=== PATIENT | female | born 1955 | race Caucasian/White ===

== ENCOUNTER → 2016-09-22 | Outpatient (CLI) | payer OTHER ==
--- NOTE | 2016-09-22 12:38 | MG ---
HISTORY: SCREENING Comparison: 11/20/2014 FINDINGS: Bilateral CC and MLO projections of the right and left breast were obtained. Scattered fibroglandul ar tissue is seen to be present. No significant architectural distortion, mass or clustered microca lcifications can be observed to suggest malignancy. No skin thickening or nipple retraction is appr eciated. No pathological lymphadenopathy can be identified. Stable benign calcifications seen in b oth breasts and biopsy clip on the left. IMPRESSION: NO RADIOGRAPHIC EVIDENCE OF MALIGNANCY. ACR CATEGORY I - NEGATIVE EXAM. FOLLOW-UP EXAM 1 YEAR. Diagnostic CAD was utilized and reviewed. * 0 (ZERO) - ASSESSMENT INCOMPLETE; ADDITIONAL IMAGING IS NEEDED. * 1/ (ONE) - NEGATIVE. * 2/II (TWO) - BENIGN FINDINGS. * 3/III (THREE) - PROBABLY BENIGN FINDING; SHORT INTERVAL FOLLOW-UP SUGGESTED. * 4/IV (FOUR) - SUSPICIOUS ABNORMALITY; BIOPSY SHOULD BE CONSIDERED. * 5/V - HIGHLY SUSPICIOUS OF MALIGNANCY; BIOPSY SHOULD BE PERFORMED. A NEGATIVE X-RAY REPORT SHOULD NOT DELAY BIOPSY IF A DOMINANT OR CLINICALLY SUSPICIOUS MASS IS PRESENT; 4 TO 8 PERCENT OF CANCERS ARE NOT IDENTIFIED BY X-RAY. A NEG ATIVE REPORT MAY REINFORCE THE CLINICAL IMPRESSION. ADENOSIS AND DENSE BREASTS MAY OBSCURE AN UNDER LYING NEOPLASM. Reported By:
== END | disposition home or self-care (01) ==
LOC: RAD 09:40
PROVIDERS: ATTEND Physician Assistant
DX: Z12.31 Encounter for screening mammogram for malignant neoplasm of breast (principal)
CPT/HCPCS: 77067

== ENCOUNTER 2016-10-02 10:40 | Day surgery (SDC) | payer OTHER ==
[2016-10-02] MEDS ORDERED: D5 LR 1000 ML 1,000 ML IV ONE (10:44)
[2016-10-02] MEDS ORDERED: DIPRIVAN VIAL 10 ML ONE ×2 (12:41)
[2016-10-02 13:40] VITALS: BP 133/70
== END 2016-10-02 13:28 | disposition home or self-care (01) ==
LOC: SURG1 10:40
PROVIDERS: ATTEND Internal Medicine Gastroenterology
PROC: 0D757ZZ Dilation of Esophagus, Via Natural or Artificial Opening (ICD-10-PCS; principal; 2016-10-02 13:15)
PROC: 0DB88ZX Excision of Small Intestine, Via Natural or Artificial Opening Endoscopic, Diagnostic (ICD-10-PCS; principal; 2016-10-02 13:15)
PROC: 0DB68ZX Excision of Stomach, Via Natural or Artificial Opening Endoscopic, Diagnostic (ICD-10-PCS; principal; 2016-10-02 13:15)
PROC: 0DJ08ZZ Inspection of Upper Intestinal Tract, Via Natural or Artificial Opening Endoscopic (ICD-10-PCS; principal; 2016-10-02 13:15)
DX: R13.19 Other dysphagia (principal); R10.13 Epigastric pain; K21.9 Gastro-esophageal reflux disease without esophagitis; K25.9 Gastric ulcer, unspecified as acute or chronic, without hemorrhage or perforation; K29.60 Other gastritis without bleeding; K20.8 Other esophagitis
CPT/HCPCS: A4217; J3490; J7120

== ENCOUNTER → 2016-10-08 | Outpatient (CLI) | payer OTHER ==
--- NOTE | 2016-10-08 11:14 | MRI ---
HISTORY: Abnormal gait and mobility Study: MRI thoracic spine without contrast Comparison: None Technique: Multiplanar multi-sequence MRI of the thoracic spine was obtained with standard [facility] protocol. Findings: The thoracic spine demonstrates normal alignment. No abnormal cord or marrow signal identified. The surrounding soft tissues are within normal limits. Vertebral body heights are preserved. There is a large right lateral disc herniation at T12-L1 with superior extrusion causing moderate to severe la teral recess and foraminal stenosis on the right side.. IMPRESSION: 1. Large right lateral disc herniation at T12-L1 with superior extrusion causing moderate to severe right lateral recess and foraminal stenosis. Reported By:
--- NOTE | 2016-10-08 11:25 | MRI ---
HISTORY: Abnormality of gait and mobility Study: Lumbar MRI without contrast Comparison: None Technique: Multiplanar multi-sequence MRI of the lumbar spine was obtained. Sagittal T1, sagittal T 2, and stir weighted images, axial T1, and axial T2 images were obtained. Findings: The lumbar spine demonstrates normal alignment. No abnormal cord or marrow signal identified. The c onus terminates at L1-L2. The surrounding soft tissues are within normal limits. Vertebral body hei ghts are preserved. There is sacralization of the L5 vertebra compatible with a transitional vertebr al body. Multilevel spondylosis and disc desiccation is present. T12 -- L1: There is a large right lateral disc herniation with superior extrusion of disc material c ausing moderate to severe right lateral recess and foraminal stenosis. L1 -- L2: Mild facet degenerative changes without significant stenosis. L2 -- L3: Mild to moderate facet degenerative changes without significant stenosis. L3 -- L4: Moderate facet degenerative changes without significant stenosis. L4 -- L5: Moderate facet degenerative changes and spondylosis resulting in mild to moderate bilatera l foraminal stenosis. L5 -- S1: No significant stenosis identified. IMPRESSION: 1. Large right lateral disc herniation with superior extrusion of disc material causing moderate to severe right lateral recess and foraminal stenosis. 2. Mild to moderate bilateral foraminal stenosis at L4-5. 3. 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 Reported By:
--- NOTE | 2016-10-08 13:39 | MRI ---
STUDY: MRI OF THE BRAIN WITHOUT GADOLINIUM History: History of stroke in 1993. Comparison: None. Technique: Multiplanar multi-sequence MRI of the brain was obtained utilizing standard departmental protocol. Sagittal and axial T1, axial T2, FLAIR, diffusion (DWI/ADC) images through the brain were performed. Findings: The sulci, cisterns, and ventricles are age appropriate. There is no evidence of acute ter ritorial infarction, hemorrhage, mass, mass effect or midline shift. There are no abnormal intra-axi al or extra-axial fluid collections. The major intracranial vascular flow voids are intact. IMPRESSION: 1. No evidence of acute intracranial abnormality. Reported By:
--- NOTE | 2016-10-08 13:55 | MRI ---
HISTORY: Neck pain and cervical radiculopathy. Noncontrast MRI examination of the cervical spine. Technique: Sagittal T1, sagittal T2, axial T2 weighted images were obtained. Findings: Alignment of the cervical spine is maintained, but there is degenerative change and bony h ypertrophy at the cervicocranial junction with some local mass effect from the dens on the cervicome dullary junction without cervical spine edema or cervical cord myelomalacia appreciated. There is mo derate to severe spondylosis and facet DJD seen from C3-C7 with multilevel disc osteophyte complexes and diffuse cervical disc desiccation. There is no evidence for an acute fracture or subluxation. N o aggressive bone marrow lesion is seen. There is no evidence for cerebral tonsillar ectopia. The po sterior elements appear diffusely intact. There is no evidence for cord expansion, cord edema, or ab normal cord signal. No intrathecal mass lesions or intrathecal hemorrhage is seen. There is no cervi talia soft tissue mass lesions are appreciated. C2 -- C3: Right paracentral disc osteophyte complex which creates moderate to severe right paracentr al spinal canal stenosis with mass effect and focal neural impression on the right portion of the sp inal cord as well as mild bilateral foraminal narrowing at this level. C3 -- C4: Broad-based, posterior, disc osteophyte complex \T\ facet DJD which creates create severe spinal canal stenosis and severe bilateral foraminal narrowing with neural impingement. C4 -- C5: Broad-based, posterior, disc osteophyte complex \T\ facet DJD which creates create severe spinal canal stenosis and severe bilateral foraminal narrowing with neural impingement. C5 -- C6: Broad-based, posterior, disc osteophyte complex \T\ facet DJD which creates create severe spinal canal stenosis and severe bilateral foraminal narrowing with neural impingement. C6 -- C7: Broad-based, right paracentral, disc osteophyte complex which combines with facet DJD to c reate [id number] right paracentral spinal canal and severe right-sided foraminal narrowing/i mpingement which compresses the exiting right-sided nerve root at this level. C7 -- T1: No significant disc pathology or foraminal/spinal canal stenosis. IMPRESSION: C1/2 degenerative change and bony hypertrophy at the cervicocranial junction with some l ocal mass effect from the dens on the cervicomedullary junction without cervical spine edema or cerv ical cord myelomalacia appreciated. These findings are concerning for early basilar impression and t here is apparent fragmentation of the inferior aspect of the clivus which could be confirmed with sk ul base CT imaging. Moderate to severe cervical spondylotic change with C3-C7 central disc osteophyte complexes and face t joint OA which creates severe foraminal and spinal canal stenosis at these levels, as detailed abo ve. No evidence for cervical cord myelomalacia, however. Reported By:
== END | disposition home or self-care (01) | DRG 93 ==
LOC: RAD 08:40
PROVIDERS: ATTEND Psychiatry & Neurology Neurology
DX: R26.89 Other abnormalities of gait and mobility (principal); Z86.73 Personal history of transient ischemic attack (TIA), and cerebral infarction without residual deficits; M51.25 Other intervertebral disc displacement, thoracolumbar region; M47.892 Other spondylosis, cervical region
CPT/HCPCS: 70551; 72141; 72146; 72148

== ENCOUNTER 2016-10-09 01:47 | Emergency (ER) | payer OTHER ==
[2016-10-09 02:00] VITALS: BP 153/84; BMI 30.9
[2016-10-09] MEDS ORDERED: ZOFRAN INJ 4 MG VIAL IM ONE ×2 (02:23→03:32)
[2016-10-09] MEDS ORDERED: ZOFRAN INJ 4 MG VIAL ONE ×2 (02:24→03:36)
[2016-10-09 02:36] LABS: BASOPHILS # (AUTO) 0.1 X10^3/uL (0.0-0.1); BASOPHILS % (AUTO) 0.8 % (0.2-1.0); EOSINOPHILS % (AUTO) 0.1 % (0.9-2.9); HEMATOCRIT 45.7 % (36.0-47.0); HEMOGLOBIN 15.3 g/dL (12.0-16.0); LYMPHOCYTES # (AUTO) 1.7 X10^3/uL (1.3-2.9); LYMPHOCYTES % (AUTO) 9.8 % (21.0-51.0); MEAN CORPUSCULAR HEMOGLOBIN 27.5 pg (27.0-34.0); MEAN CORPUSCULAR HGB CONC 33.5 g/dL (33.0-35.0); MEAN PLATELET VOLUME 7.6 fL (7.4-11.0); MONOCYTES # (AUTO) 0.7 x10^3/uL (0.3-0.8); MONOCYTES % (AUTO) 4.3 % (0.0-13.0); NEUTROPHILS # (AUTO) 14.8 x10^3/uL (2.2-4.8); PLATELET COUNT 314 X10^3/uL (150.0-450.0); RED BLOOD COUNT 5.57 X10^6/uL (3.5-5.4); RED CELL DISTRIBUTION WIDTH 13.9 % (11.6-16.5); WHITE BLOOD COUNT 17.5 X10^3/uL (3.6-10.0)
--- NOTE | 2016-10-09 02:44 | DR.GENAD ---
HPI - PCP Primary Care Physician: MARTIR - HPI Comment HPI Comment: PATIENT IS WEAK. SHE TOOK ALL THE PREP MEDS AND ONLY STARTED GETTING SICK AFTER THE 21:00 PM DOSE OF MEDICATION. NO FEVER. NO DYSURIA. - Complaint/Symptoms Chief Complaint Doctors Comments: ABDOMINAL PAIN, NAUSEA NOTED TODAY WHILE DOING COLONOSCOPY PREP. NO FEVER. NO DYSURIA. Chief Complaint:: PT STATES" I'M SICK TOO MY STOMACH BECAUSE I AM TAKING COLONOSCOPY MEDS I TOOK THE LAST 2 DUCCOLAX AT 2100 AFTER 1 HOUR I WAS VOMITING " - Nurses notes reviewed Nurses Notes Review: Yes - Source History Provided: Patient - Mode of Arrival Mode of Arrival: Ambulatory - Timing Onset of Chief Complaint: 10/08/16 Came on: Suddenly - Duration Duration: Constant Duration: Hours - Severity Severity: Moderate PMH - PMH Past Medical History: Yes Past Medical History: CVA Past Surgical History: Yes Surgical History: Appendectomy, Hysterectomy - Family History History of Family Medical Conditions: No - Social History Does patient currently use any type of tobacco product: No Have you used tobacco products in the last 12 months: No Type of Tobacco Use: None Does any household member use tobacco: No Alcohol Use: None Do you use any recreational Drugs:: No Lives With: Family Lives Where: Home - infectious screening In the last 2 months have you had wt loss of >10#?: NO Have you had fever, night sweats or hemotysis?: No Have you traveled outside the country in the last 6 months?: No Isolation: Standard ROS - Review of Systems Constitutional: Weakness, Fatigue, Other. negative: Chills, Fever Eyes: No Symptoms Reported. negative: Eye Pain, Discharge ENTM: No Symptoms Reported. negative: Ear Pain, Nose Discharge, Nose Congestion , Throat Pain Respiratoy: No Symptoms Reported, Non-Productive Cough. negative: Short of Breath, Wheezing, Hemoptysis Cardiovascular: No Symptoms Reported. negative: Edema, Palpitations Gastrointestinal/Abdominal: Abdominal Pain, Nausea Neurological: Weakness. negative: Headache Musculoskeletal: Muscle Pain Integumentary: No Symptoms Reported Hematologic/Lymphatic: No Symptoms Reported Endocrine: No Symptoms Reported All Other Systems: Reviewed and Negative PE - Vital Signs Vitals: Temperature 98.6 F Pulse Rate 80 Respiratory Rate 18 Blood Pressure 153/84 O2 Sat by Pulse Oximetry 97 - General Limitations: No Limitations General Appearance: Alert - Head Head Exam: Normal Inspection - Eyes Eye exam: Normal Appearance - ENT ENT Exam: Normal External Ear Exam TM/Canal Exam: Bilateral Normal Nose Exam: Normal Nose Exam, Sinus Tenderness Mouth Exam: Normal Inspection Throat Exam: Normal Inspection - Neck Neck Exam: Normal Inspection - Chest Chest Inspection: Symmetric Chest Wall Rise - Respiratory Respiratory Exam: Normal Lung Sounds Bilat Respiratory Exam: Bilateral Clear to Auscultation - Cardiovascular Cardiovascular Exam: Regular Rate, Normal Rhythm, Normal Heart Sounds - Abdominal Exam Abdominal Exam: Normal Bowel Sounds, Soft, Tenderness Abdominal Tenderness: Diffuse, Mild - Extremities Extremities Exam: Normal Inspection - Back Back Exam: Normal Inspection - Neurologic Neurological Exam: Alert, Oriented X3 - Psychiatric Psychiatric Exam: Anxious - Skin Skin Exam: Dry MDM - Differential Diagnosis Differential Diagnosis: ABDOMINAPL PAIN, NAUSEA Course - Treatment Treatment: SEE ORDERS. MED FOR NAUSEA AND IV BOLUS D5NS IN ED. - Education/Counseling Education/Counseling: Patient Educated On: Treatment, Diagnosis ROR - Labs Reviewed Laboratory Results Reviewed?: Yes Result Diagrams: 10/09/16 02:24 10/09/16 02:24 Laboratory: WBC 17.5 X10^3/uL (3.6-10.0) H 10/09/16 02:24 RBC 5.57 X10^6/uL (3.5-5.4) H 10/09/16 02:24 Hgb 15.3 g/dL (12.0-16.0) 10/09/16 02:24 Hct 45.7 % (36.0-47.0) 10/09/16 02:24 MCV 82.0 fL (80.0-100.0) 10/09/16 02:24 MCH 27.5 pg (27.0-34.0) 10/09/16 02:24 MCHC 33.5 g/dL (33.0-35.0) 10/09/16 02:24 RDW 13.9 % (11.6-16.5) 10/09/16 02:24 Plt Count 314 X10^3/uL (150.0-450.0) 10/09/16 02:24 MPV 7.6 fL (7.4-11.0) 10/09/16 02:24 Neut % 85.0 % (42.0-75.0) H 10/09/16 02:24 Lymph % 9.8 % (21.0-51.0) L 10/09/16 02:24 [place] % 4.3 % (0.0-13.0) 10/09/16 02:24 Eos % 0.1 % (0.9-2.9) L 10/09/16 02:24 Baso % 0.8 % (0.2-1.0) 10/09/16 02:24 Neut # 14.8 x10^3/uL (2.2-4.8) H 10/09/16 02:24 Lymph # 1.7 X10^3/uL (1.3-2.9) 10/09/16 02:24 [place] # 0.7 x10^3/uL (0.3-0.8) 10/09/16 02:24 Eos # 0.0 x10^3/uL (0.0-0.2) 10/09/16 02:24 Baso # 0.1 X10^3/uL (0.0-0.1) 10/09/16 02:24 Absolute Nucleated RBC 0.1 /100WBC 10/09/16 02:24 Sodium 139 mmol/L (136-145) 10/09/16 02:24 Corrected Sodium 140 mmol/L (136-145) 10/09/16 02:24 Potassium 4.2 mmol/L (3.5-5.1) 10/09/16 02:24 Chloride 102 mmol/L (98-107) 10/09/16 02:24 Carbon Dioxide 24.4 mmol/L (21-32) 10/09/16 02:24 BUN 9 mg/dL (7-18) 10/09/16 02:24 Creatinine 1.12 mg/dL (0.55-1.02) H 10/09/16 02:24 Est GFR (MDRD) Af Amer > 60 (>60) 10/09/16 02:24 Est GFR (MDRD) Non-Af 53 (>60) L 10/09/16 02:24 Glucose 136 mg/dL (65-99) H 10/09/16 02:24 Calcium 9.5 mg/dL (8.5-10.1) 10/09/16 02:24 Corrected Calcium TNP 10/09/16 02:24 Total Bilirubin 0.90 mg/dL (0.2-1.0) 10/09/16 02:24 AST 25 Units/L (15-37) 10/09/16 02:24 ALT 30 Units/L (12-78) 10/09/16 02:24 Alkaline Phosphatase 61 Units/L (46-116) 10/09/16 02:24 Total Protein 8.8 g/dL (6.4-8.2) H 10/09/16 02:24 Albumin 4.4 g/dL (3.4-5.0) 10/09/16 02:24 Globulin 4.4 g/dL (2.5-4.5) 10/09/16 02:24 Albumin/Globulin Ratio 1.0 Ratio (1.1-2.1) L 10/09/16 02:24 Specimen Type Clean catch urine 10/09/16 03:47 Urine Color Dark yellow (YELLOW) 10/09/16 03:47 Urine Appearance Cloudy (CLEAR) 10/09/16 03:47 Urine pH 6.0 (5.0 - 8.0) 10/09/16 03:47 Ur Specific [place] 1.030 (1.000-1.030) 10/09/16 03:47 Urine Protein 2+ (NEGATIVE) 10/09/16 03:47 Urine Glucose (UA) Negative (NEGATIVE) 10/09/16 03:47 Urine Ketones 3+ (NEGATIVE) 10/09/16 03:47 Urine Occult Blood 4+ (NEGATIVE) 10/09/16 03:47 Urine Nitrite Negative (NEGATIVE) 10/09/16 03:47 Urine Bilirubin Negative (NEGATIVE) 10/09/16 03:47 Urine Urobilinogen Normal (NORMAL) 10/09/16 03:47 Ur Leukocyte Esterase Negative (NEGATIVE) 10/09/16 03:47 Urine RBC 0-3 /HPF (NEGATIVE) 10/09/16 03:47 Urine WBC 0-3 /HPF (NEGATIVE) 10/09/16 03:47 Ur Squamous Epith Cells Rare /HPF (NEGATIVE) 10/09/16 03:47 Urine Bacteria 3+ /HPF (NEGATIVE) 10/09/16 03:47 Ur Culture Indicated? Yes/culture set up 10/09/16 03:47 - XRAY XRAY Interpreted by: Radiologist XRAY Findings: REPORT DISCUSS WITH PATIENT. - Diagnosis Discharge Problem: Nausea Abdominal pain Qualifiers: Abdominal location: generalized Qualified Code(s): R10.84 - Generalized abdominal pain UTI (urinary tract infection) Qualifiers: Urinary tract infection type: site unspecified Hematuria presence: without hematuria Qualified Code(s): N39.0 - Urinary tract infection, site not specified - Discharge Plan Disposition: HOME, SELF-CARE Condition: Stable Prescriptions: Ondansetron HCl [Zofran Tab 4 mg] 4 mg PO Q8H PRN #12 tab PRN Reason: Nausea/Vomiting Sulfamethoxazole-Trimethoprim [BACTRIM DS TAB 800/160 MG *] 1 tab PO BID #20 tab - Follow ups/Referrals Follow ups/Referrals: NFD,None [Primary Care Provider] - 3 days BOOGIE RIOS [STAFF PHYSICIAN] - 10/09/16 - Instructions Instructions: Weakness, [id number], Urinary Tract Infection, [id number], Leukocytosis Additional Instructions: RETURN TO ED IF WORSE. SHOW YOUR REPORT TO DR. RIOS THIS AM BEFORE YOUR PROCEDURE.
[2016-10-09 02:46] LABS: ALANINE AMINOTRANSFERASE 30 Units/L (12-78); ALBUMIN 4.4 g/dL (3.4-5.0); ALKALINE PHOSPHATASE 61 Units/L (46-116); ASPARTATE AMINO TRANSFERASE 25 Units/L (15-37); BLOOD UREA NITROGEN 9 mg/dL (7-18); CALCIUM 9.5 mg/dL (8.5-10.1); CARBON DIOXIDE 24.4 mmol/L (21-32); CHLORIDE 102 mmol/L (98-107); COR NA(FOR HYPERGLY) 140 mmol/L (136-145); CREATININE 1.12 mg/dL (0.55-1.02); GLUCOSE 136 mg/dL (65-99); SODIUM 139 mmol/L (136-145); TOTAL PROTEIN 8.8 g/dL (6.4-8.2); eGFR BLACK RACES > 60 (>60); eGFR NON BLACK RACES 53 (>60)
--- NOTE | 2016-10-09 02:46 | RAD ---
EXAM: Abdomen x-ray INDICATION: Abdominal pain COMPARISION: No priors TECHNIQUE: AP view, single view FINDINGS: The bowel loops are nonobstructed. No abnormal mass or calcification is identified. The regional ske leton is intact. IMPRESSION: Normal single view abdominal x-ray examination Reported By:
[2016-10-09 03:55] LABS: BILIRUBIN,URINE NEGATIVE (NEGATIVE); BLOOD/HEMOGLOBIN,URINE 4+ (NEGATIVE); GLUCOSE, URINE NEGATIVE (NEGATIVE); KETONES,URINE 3+ (NEGATIVE); LEUKOCYTE ESTERASE ,URINE NEGATIVE (NEGATIVE); NITRITES,URINE NEGATIVE (NEGATIVE); PROTEIN,URINE 2+ (NEGATIVE); UROBILINOGEN,URINE NORMAL (NORMAL)
[2016-10-09 04:02] LABS: APPEARANCE,URINE CLOUDY (CLEAR); BACTERIA,URINE 3+ /HPF (NEGATIVE); COLOR,URINE DARK YELLOW (YELLOW); RBC,URINE 0-3 /HPF (NEGATIVE); SQUAMOUS EPITHELIAL CELL,UR RARE /HPF (NEGATIVE)
[2016-10-09] MEDS ORDERED: D5 NS 1000 ML 1,000 ML IV ONE ×2 (04:16→04:18)
[2016-10-09] MEDS ORDERED: ROCEPHIN 1 GM IV PREMIX * OUT OF STOCK 50 ML IV ONE (04:17)
[2016-10-09] MEDS ORDERED: ROCEPHIN VIAL 1 GM 1 GM in NS 50 ML IV + SPIKE MINIBAG* 50 ML IV ONE (04:18)
== END 2016-10-09 05:25 | disposition home or self-care (01) ==
LOC: ER 01:47
DX: N39.0 Urinary tract infection, site not specified (principal); R10.84 Generalized abdominal pain; R11.0 Nausea
CPT/HCPCS: 36415; 74000; 80053; 81001; 85025; 87086; 96365; 96372; 96374; 99283; A4222; J0696; J2405

== ENCOUNTER 2016-10-09 10:34 | Day surgery (SDC) | payer OTHER ==
[2016-10-09] MEDS ORDERED: D5 LR 1000 ML 1,000 ML IV ONE (10:40)
[2016-10-09] MEDS ORDERED: DIPRIVAN VIAL 20 ML ONE (10:48)
[2016-10-09 11:46] VITALS: BP 124/70
== END 2016-10-09 11:45 | disposition home or self-care (01) ==
LOC: SURG1 10:34
PROVIDERS: ATTEND Internal Medicine Gastroenterology
PROC: 0DJD8ZZ Inspection of Lower Intestinal Tract, Via Natural or Artificial Opening Endoscopic (ICD-10-PCS; principal; 2016-10-09 12:45)
PROC: 0DBP8ZX Excision of Rectum, Via Natural or Artificial Opening Endoscopic, Diagnostic (ICD-10-PCS; principal; 2016-10-09 12:45)
PROC: 0DBL8ZX Excision of Transverse Colon, Via Natural or Artificial Opening Endoscopic, Diagnostic (ICD-10-PCS; principal; 2016-10-09 12:45)
DX: Z12.11 Encounter for screening for malignant neoplasm of colon (principal); K92.1 Melena; K62.1 Rectal polyp; K63.5 Polyp of colon; K64.0 First degree hemorrhoids; D12.3 Benign neoplasm of transverse colon; D12.8 Benign neoplasm of rectum
CPT/HCPCS: A4217; J3490; J7120

== ENCOUNTER → 2016-10-15 | Outpatient (CLI) | payer OTHER ==
[2016-10-09 11:46] VITALS: BP 124/70
== END ==
LOC: RT 14:29
PROVIDERS: ATTEND Psychiatry & Neurology Neurology
DX: G56.02 Carpal tunnel syndrome, left upper limb (principal)
CPT/HCPCS: 95911

== ENCOUNTER 2016-11-05 20:35 | Emergency (ER) | payer OTHER ==
[2016-11-05 20:46] VITALS: BP 134/76; BMI 30.9
--- NOTE | 2016-11-05 23:25 | DR.GENAD ---
HPI - PCP Primary Care Physician: nfd - Complaint/Symptoms Chief Complaint Doctors Comments: History as stated Chief Complaint:: pt states" my son in laws dog's canine tooth got me on the left hand when i was trying too rub his nose in the poop he did on the floor" - Source History Provided: Patient - Mode of Arrival Mode of Arrival: Ambulatory - Timing Onset of Chief Complaint: 11/05/16 PMH - PMH Past Medical History: Yes Past Medical History: CVA, Dyslipidemia, Hypertension Past Surgical History: Yes Surgical History: Hysterectomy Past Surgical History Comment: eye surgery - Family History History of Family Medical Conditions: No - Social History Do you use any recreational Drugs:: No Lives With: Family Lives Where: Home - infectious screening In the last 2 months have you had wt loss of >10#?: NO Have you had fever, night sweats or hemotysis?: No Have you traveled outside the country in the last 6 months?: No Isolation: Standard ROS - Review of Systems Constitutional: No Symptoms Reported Eyes: No Symptoms Reported ENTM: No Symptoms Reported Respiratoy: No Symptoms Reported Cardiovascular: No Symptoms Reported Gastrointestinal/Abdominal: No Symptoms Reported Genitourinary: No Symptoms Reported Neurological: No Symptoms Reported Musculoskeletal: Left (hand) Integumentary: No Symptoms Reported Hematologic/Lymphatic: No Symptoms Reported Endocrine: No Symptoms Reported Psychiatric: No Symptoms Reported All Other Systems: Reviewed and Negative PE - Vital Signs Vitals: Temperature 98.2 F Pulse Rate 60 Respiratory Rate 18 Blood Pressure 134/76 O2 Sat by Pulse Oximetry 99 - General Limitations: No Limitations General Appearance: Alert, In No Apparent Distress - Head Head Exam: Normal Inspection, Atraumatic - Eyes Eye exam: Normal Appearance, PERRL, EOMI - ENT ENT Exam: Normal Exam, Normal Oropharynx External Ear Exam: Normal External Inspection TM/Canal Exam: Bilateral Normal Nose Exam: Normal Nose Exam Mouth Exam: Normal Inspection Throat Exam: Normal Inspection - Neck Neck Exam: Normal Inspection, Full ROM - Chest Chest Inspection: Normal Inspection - Respiratory Respiratory Exam: Normal Lung Sounds Bilat Respiratory Exam: Bilateral Clear to Auscultation - Cardiovascular Cardiovascular Exam: Regular Rate - Abdominal Exam Abdominal Exam: Normal Inspection, Normal Bowel Sounds Abdominal Tenderness: negative: RUQ, RLQ, LUQ, LLQ, Epigastrium, Suprapubic, Diffuse, Mild, Moderate, Severe, Other - Extremities Extremities Exam: Other (Left ahdn sandoval surface between digits ) - Back Back Exam: Normal Inspection, Full ROM - Neurologic Neurological Exam: Alert, Oriented X3, CN II-XII Intact - Psychiatric Psychiatric Exam: Normal Affect, Normal Mood - Skin Skin Exam: Warm, Dry, Intact Course - Reevaluation 1st: Improved Procedures - Laceration/Wound Repair Left 3rd Digit Wound Length (cm): 2 Wound's Depth, Shape: Superficial, Linear Wound Explored: no foreign body removed Betadine Prep?: Yes Anesthesia: 1% Lidocaine w/ Epi Wound Repaired With: sutures Suture Size/Type: 4:0, [place] Number of Sutures: 6 - Diagnosis Discharge Problem: Laceration of left hand Qualifiers: Encounter type: initial encounter Foreign body presence: without foreign body Qualified Code(s): S61.412A - Laceration without foreign body of left hand, initial encounter - Discharge Plan Condition: Stable - Follow ups/Referrals Follow ups/Referrals: NFD,None [Primary Care Provider] - 3 days - Instructions
== END 2016-11-05 23:40 | disposition home or self-care (01) ==
LOC: ER 20:49
PROC: 0HQGXZZ Repair Left Hand Skin, External Approach (ICD-10-PCS; principal; 2016-11-05)
DX: S61.412A Laceration without foreign body of left hand, initial encounter (principal); W54.0XXA Bitten by dog, initial encounter; Y93.89 Activity, other specified; Y92.89 Other specified places as the place of occurrence of the external cause
CPT/HCPCS: 12001; 99282

== ENCOUNTER 2017-02-19 09:17 | Day surgery (SDC) | payer OTHER ==
[2017-02-19] MEDS ORDERED: D5 LR 1000 ML 1,000 ML IV ONE (09:27)
[2017-02-19] MEDS ORDERED: DIPRIVAN VIAL 20 ML ONE (11:34)
[2017-02-19 12:15] VITALS: BP 107/68
== END 2017-02-19 12:10 | disposition home or self-care (01) ==
LOC: SURG1 09:17
PROVIDERS: ATTEND Internal Medicine Gastroenterology
PROC: 0DB68ZX Excision of Stomach, Via Natural or Artificial Opening Endoscopic, Diagnostic (ICD-10-PCS; principal; 2017-02-19 13:00)
PROC: 0DJ08ZZ Inspection of Upper Intestinal Tract, Via Natural or Artificial Opening Endoscopic (ICD-10-PCS; principal; 2017-02-19 13:00)
DX: K25.9 Gastric ulcer, unspecified as acute or chronic, without hemorrhage or perforation (principal); R10.13 Epigastric pain; K21.9 Gastro-esophageal reflux disease without esophagitis; K29.60 Other gastritis without bleeding; K44.9 Diaphragmatic hernia without obstruction or gangrene
CPT/HCPCS: A4217; J3490; J7120